=== PATIENT | female | born 1980 | race Two or more races ===

== ENCOUNTER → 2017-08-06 | Outpatient (CLI) | payer OTHER | END | disposition home or self-care (01) | LOC: RAD 11:05 | DX: R06.00 Dyspnea, unspecified (principal); R06.02 Shortness of breath; M54.89 Other dorsalgia | CPT/HCPCS: 71046 ==

== ENCOUNTER → 2017-10-13 | Outpatient (CLI) | payer OTHER | END | disposition home or self-care (01) | LOC: US 12:41 | DX: N64.4 Mastodynia (principal); N63.20 Unspecified lump in the left breast, unspecified quadrant; N63.10 Unspecified lump in the right breast, unspecified quadrant | CPT/HCPCS: 76641; 77066; G0279 ==

== ENCOUNTER 2018-08-31 08:40 | Emergency (ER) | payer OTHER ==
[~2018-08-31] VITALS: Ht 165.1 cm; Wt 72.6 kg
[2018-08-31] MEDS ORDERED: ALBUTEROL SULFATE 2.5 MG/3 ML NEBU. CONT NEB ONE (09:00)
[2018-08-31 09:21] LABS: BILIRUBIN,URINE NEGATIVE (NEG); CLARITY,URINE CLEAR; COLOR,URINE YELLOW; NITRITE,URINE NEGATIVE (NEG); PROTEIN,URINE NEGATIVE (NEG-TRACE); UROBILINOGEN,URINE 0.2 mg/dL (0.2 mg/dL)
[2018-08-31 09:26] LABS: BASO % 1 % (0-3); EOS # 0.1 x10^3/uL (0.0-0.7); EOS % 1 % (0-3); HEMATOCRIT 39.6 % (36.0-47.0); HEMOGLOBIN 13.2 g/dL (12.0-15.5); LYMPH # 3.4 x10^3/uL (1.0-4.8); LYMPH % 36 % (24-48); MEAN CORPUSCULAR HEMOGLOBIN 29 pg (25-35); MEAN CORPUSCULAR HGB CONC 33 g/dL (31-37); MEAN CORPUSCULAR VOLUME 88 fL (79-100); MONO # 0.9 x10^3/uL (0.0-1.1); MONO % 10 % (0-9); NEUT # 4.9 x10^3uL (1.8-7.7); NEUT % 53 % (31-73); PLATELET COUNT 302 x10^3/uL (140-400); RED CELL DISTRIBUTION WIDTH 13.1 % (11.5-14.5); WHITE BLOOD COUNT 9.3 x10^3/uL (4.0-11.0)
--- NOTE | 2018-08-31 09:26 | PHYS DOC ---
Past Medical History Past Medical History: Asthma Past Surgical History: Appendectomy, Additional Past Surgical Histo: bladder suspension Alcohol Use: None Drug Use: None Adult General Chief Complaint Chief Complaint: SHORTNESS OF BREATH HPI HPI Patient is a 37 year old female who presents with [] Review of Systems Review of Systems Constitutional: Denies fever or chills [] Eyes: Denies change in visual acuity, redness, or eye pain [] HENT: Denies nasal congestion or sore throat [] Respiratory: Denies cough or shortness of breath [] Cardiovascular: No additional information not addressed in HPI [] GI: Denies abdominal pain, nausea, vomiting, bloody stools or diarrhea [] : Denies dysuria or hematuria [] Musculoskeletal: Denies back pain or joint pain [] Integument: Denies rash or skin lesions [] Neurologic: Denies headache, focal weakness or sensory changes [] Endocrine: Denies polyuria or polydipsia [] All other systems were reviewed and found to be within normal limits, except as documented in this note. Current Medications Current Medications Current Medications Medications (Trade) Dose Ordered Sig/Karley Start Time Stop Time Status Last Admin Dose Admin Albuterol Sulfate (Ventolin Neb Soln) 10 mg 1X ONCE 08/31/18 09:00 08/31/18 09:01 DC 08/31/18 09:06 10 MG Allergies Allergies Allergies Coded Allergies Type Severity Reaction Last Updated Verified No Known Drug Allergies 01/13/14 No Physical Exam Physical Exam Constitutional: Well developed, well nourished, no acute distress, non-toxic appearance. [] HENT: Normocephalic, atraumatic, bilateral external ears normal, oropharynx moist, no oral exudates, nose normal. [] Eyes: PERRLA, EOMI, conjunctiva normal, no discharge. [] Neck: Normal range of motion, no tenderness, supple, no stridor. [] Cardiovascular:Heart rate regular rhythm, no murmur [] Lungs & Thorax: Bilateral breath sounds clear to auscultation [] Abdomen: Bowel sounds normal, soft, no tenderness, no masses, no pulsatile masses. [] Skin: Warm, dry, no erythema, no rash. [] Back: No tenderness, no CVA tenderness. [] Extremities: No tenderness, no cyanosis, no clubbing, ROM intact, no edema. [] Neurologic: Alert and oriented X 3, normal motor function, normal sensory function, no focal deficits noted. [] Psychologic: Affect normal, judgement normal, mood normal. [] Current Patient Data Vital Signs Vital Signs Date Time Temp Pulse Resp B/P (MAP) Pulse Ox O2 Delivery O2 Flow Rate FiO2 08/31/18 09:10 97 Room Air 08/31/18 08:49 96.9 82 20 116/74 (88) 96.9 Lab Values Laboratory Tests Test 08/31/18 09:05 08/31/18 09:10 08/31/18 10:26 Urine Collection Type Unknown Urine Color Yellow Urine Clarity Clear Urine pH 6.0 Urine Specific [place] 1.025 Urine Protein Negative mg/dL (NEG-TRACE) Urine Glucose (UA) Negative mg/dL (NEG) Urine Ketones (Stick) Negative mg/dL (NEG) Urine Blood Trace (NEG) Urine Nitrite Negative (NEG) Urine Bilirubin Negative (NEG) Urine Urobilinogen Dipstick 0.2 mg/dL (0.2 mg/dL) Urine Leukocyte Esterase Negative (NEG) Urine RBC Occ /HPF (0-2) Urine WBC 5-10 /HPF (0-4) Urine Squamous Epithelial Cells Mod /LPF Urine Bacteria Moderate /HPF (0-FEW) Urine Mucus Mod /LPF White Blood Count 9.3 x10^3/uL (4.0-11.0) Red Blood Count 4.50 x10^6/uL (3.50-5.40) Hemoglobin 13.2 g/dL (12.0-15.5) Hematocrit 39.6 % (36.0-47.0) Mean Corpuscular Volume 88 fL (79-100) Mean Corpuscular Hemoglobin 29 pg (25-35) Mean Corpuscular Hemoglobin Concent 33 g/dL (31-37) Red Cell Distribution Width 13.1 % (11.5-14.5) Platelet Count 302 x10^3/uL (140-400) Neutrophils (%) (Auto) 53 % (31-73) Lymphocytes (%) (Auto) 36 % (24-48) Monocytes (%) (Auto) 10 % (0-9) H Eosinophils (%) (Auto) 1 % (0-3) Basophils (%) (Auto) 1 % (0-3) Neutrophils # (Auto) 4.9 x10^3uL (1.8-7.7) Lymphocytes # (Auto) 3.4 x10^3/uL (1.0-4.8) Monocytes # (Auto) 0.9 x10^3/uL (0.0-1.1) Eosinophils # (Auto) 0.1 x10^3/uL (0.0-0.7) Basophils # (Auto) 0.0 x10^3/uL (0.0-0.2) Sodium Level 142 mmol/L (136-145) Potassium Level 3.5 mmol/L (3.5-5.1) Chloride Level 103 mmol/L (98-107) Carbon Dioxide Level 23 mmol/L (21-32) Anion Gap 16 (6-14) H Blood Urea Nitrogen 18 mg/dL (7-20) Creatinine 0.8 mg/dL (0.6-1.0) Estimated GFR (Cockcroft-Gault) 79.9 BUN/Creatinine Ratio 23 (6-20) H Glucose Level 80 mg/dL (70-99) Calcium Level 9.4 mg/dL (8.5-10.1) Total Bilirubin 0.3 mg/dL (0.2-1.0) Aspartate Amino Transferase (AST) 14 U/L (15-37) L Alanine Aminotransferase (ALT) 33 U/L (14-59) Alkaline Phosphatase 45 U/L (46-116) L Total Protein 7.5 g/dL (6.4-8.2) Albumin 4.0 g/dL (3.4-5.0) Albumin/Globulin Ratio 1.1 (1.0-1.7) POC Urine HCG, Qualitative Hcg negative (Negative) Laboratory Tests 08/31/18 09:10 Laboratory Tests 08/31/18 09:10 EKG EKG [] Radiology/Procedures Radiology/Procedures [] PATIENT: MAY VELASQUEZ ACCOUNT: [id number] : 1980 LOCATION: ER AGE: 37 SEX: F EXAM STATUS: REG ER ORD. PHYSICIAN: AMAURY SYED APRN REASON: worsening cough, short of air PROCEDURE: CHEST PA & LATERAL Chest, PA and Lateral: Technique: PA and lateral views of the chest were obtained. History: Shortness of breath, cough. Comparison: 08/06/2017. Findings: The heart and pulmonary vasculature appear within normal limits. The lungs are clear. The pleural margins are clear. Impression: No acute chest process is seen. Electronically signed by: Heriberto Lu MD (08/31/2018 10:37 AM) [facility] DICTATED and SIGNED BY: HERIBERTO LU MD DATE: 08/31/18 1035 Course & Med Decision Making Course & Med Decision Making Pertinent Labs and Imaging studies reviewed. (See chart for details) [] Dragon Disclaimer Dragon Disclaimer This electronic medical record was generated, in whole or in part, using a voice recognition dictation system. Departure Departure Impression: Primary Impression: Asthma exacerbation Disposition: 01 HOME, SELF-CARE Condition: STABLE Referrals: LORI ENGLISH GAMBLING BROKER (PCP) Patient Instructions: Asthma, Adult Additional Instructions: Continue your at home medications. Follow-up with your primary care provider for recheck in 2 days. Increase fluids and rest. Return to the emergency department if worsening. AMAURY SYED APRN Aug 31, 2018 09:26
[2018-08-31 09:36] LABS: CALCIUM 9.4 mg/dL (8.5-10.1); CREATININE 0.8 mg/dL (0.6-1.0); GFR 79.9; POTASSIUM 3.5 mmol/L (3.5-5.1)
[2018-08-31 09:37] LABS: SQUAMOUS EPITHELIAL CELL,UR MOD /LPF
[2018-08-31 09:42] LABS: ALBUMIN/GLOBULIN RATIO 1.1 (1.0-1.7); TOTAL BILIRUBIN 0.3 mg/dL (0.2-1.0); TOTAL PROTEIN 7.5 g/dL (6.4-8.2)
[2018-08-31 10:05] LABS: RBC,URINE OCC /HPF (0-2)
[2018-08-31 10:06] LABS: BACTERIA,URINE MODERATE /HPF (0-FEW)
--- NOTE | 2018-08-31 10:42 | RAD ---
Chest, PA and Lateral: Technique: PA and lateral views of the chest were obtained. History: Shortness of breath, cough. Comparison: 08/06/2017. Findings: The heart and pulmonary vasculature appear within normal limits. The lungs are clear. The pleural margins are clear. Impression: No acute chest process is seen. Electronically signed by: Heriberto Lu MD (08/31/2018 10:37 AM) [facility]
[2018-08-31 11:31] VITALS: BP 124/60
== END 2018-08-31 11:30 | disposition home or self-care (01) ==
LOC: ER 08:40
DX: J45.901 Unspecified asthma with (acute) exacerbation (principal)
CPT/HCPCS: 36415; 71046; 80053; 81001; 81025; 85025; 87086; 94644; 99285; J7613; 94640

== ENCOUNTER 2018-09-09 16:28 | Emergency (ER) | payer OTHER ==
[~2018-09-09] VITALS: Ht 165.1 cm; Wt 72.6 kg
[2018-09-09] MEDS ORDERED: predniSONE 10 MG TABLET PO ONE (16:45)
[2018-09-09] MEDS ORDERED: IPRATRPIUM/ALBUTEROL 0.5/2.5MG 3 ML NEBU. NEB ONE (16:45)
--- NOTE | 2018-09-09 16:56 | PHYS DOC ---
Past Medical History Past Medical History: Asthma Past Surgical History: Appendectomy, Additional Past Surgical Histo: bladder suspension Alcohol Use: None Drug Use: None Adult General Chief Complaint Chief Complaint: SHORTNESS OF BREATH HPI HPI Patient is a 37 year old female who presents with was diagnosed with pneumonia 3 weeks ago. Patient finished her antibiotic and Medrol Dosepak 2 weeks ago. Patient has a history of asthma. Patient states she's got slightly better but is back to not feeling good. Patient states she is coughing nonstop causing her chest pain and she started running a fever again last night. Review of Systems Review of Systems Constitutional: Denies fever or chills [] Eyes: Denies change in visual acuity, redness, or eye pain [] HENT: Denies nasal congestion or sore throat [] Respiratory: cough or shortness of breath [] Cardiovascular: No additional information not addressed in HPI [] GI: Denies abdominal pain, nausea, vomiting, bloody stools or diarrhea [] : Denies dysuria or hematuria [] Musculoskeletal: Denies back pain or joint pain [] Integument: Denies rash or skin lesions [] Neurologic: Denies headache, focal weakness or sensory changes [] All other systems were reviewed and found to be within normal limits, except as documented in this note. Current Medications Current Medications Current Medications Medications (Trade) Dose Ordered Sig/Karley Start Time Stop Time Status Last Admin Dose Admin Albuterol/ Ipratropium (Duoneb) 3 ml 1X ONCE 09/09/18 16:45 09/09/18 16:46 DC 09/09/18 16:50 3 ML Benzonatate (Tessalon Perle) 100 mg 1X ONCE 09/09/18 17:00 09/09/18 17:01 DC 09/09/18 17:01 100 MG Prednisone (Prednisone) 50 mg 1X ONCE 09/09/18 16:45 09/09/18 16:46 DC 09/09/18 17:01 50 MG Allergies Allergies Allergies Coded Allergies Type Severity Reaction Last Updated Verified No Known Drug Allergies 01/13/14 No Physical Exam Physical Exam Constitutional: Well developed, well nourished, no acute distress, non-toxic appearance. [] HENT: Normocephalic, atraumatic, bilateral external ears normal, oropharynx moist, no oral exudates, nose normal. [] Eyes: PERRLA, EOMI, conjunctiva normal, no discharge. [] Neck: Normal range of motion, no tenderness, supple, no stridor. [] Cardiovascular:Heart rate regular rhythm, no murmur [] Lungs & Thorax: Right lung inspiratory expiratory wheezes Abdomen: Bowel sounds normal, soft, no tenderness, no masses, no pulsatile masses. [] Skin: Warm, dry, no erythema, no rash. [] Back: No tenderness, no CVA tenderness. [] Extremities: No tenderness, no cyanosis, no clubbing, ROM intact, no edema. [] Neurologic: Alert and oriented X 3, normal motor function, normal sensory function, no focal deficits noted. [] Psychologic: Affect normal, judgement normal, mood normal. [] Current Patient Data Vital Signs Vital Signs Date Time Temp Pulse Resp B/P (MAP) Pulse Ox O2 Delivery O2 Flow Rate FiO2 09/09/18 16:50 98 Room Air 09/09/18 16:49 97.7 108 20 118/72 (87) 97.7 Lab Values Laboratory Tests Test 09/09/18 16:55 09/09/18 17:01 White Blood Count 8.1 x10^3/uL (4.0-11.0) Red Blood Count 4.60 x10^6/uL (3.50-5.40) Hemoglobin 13.8 g/dL (12.0-15.5) Hematocrit 40.8 % (36.0-47.0) Mean Corpuscular Volume 89 fL (79-100) Mean Corpuscular Hemoglobin 30 pg (25-35) Mean Corpuscular Hemoglobin Concent 34 g/dL (31-37) Red Cell Distribution Width 12.9 % (11.5-14.5) Platelet Count 291 x10^3/uL (140-400) Neutrophils (%) (Auto) 62 % (31-73) Lymphocytes (%) (Auto) 23 % (24-48) L Monocytes (%) (Auto) 14 % (0-9) H Eosinophils (%) (Auto) 2 % (0-3) Basophils (%) (Auto) 1 % (0-3) Neutrophils # (Auto) 5.0 x10^3uL (1.8-7.7) Lymphocytes # (Auto) 1.8 x10^3/uL (1.0-4.8) Monocytes # (Auto) 1.1 x10^3/uL (0.0-1.1) Eosinophils # (Auto) 0.1 x10^3/uL (0.0-0.7) Basophils # (Auto) 0.0 x10^3/uL (0.0-0.2) Sodium Level 136 mmol/L (136-145) Potassium Level 3.8 mmol/L (3.5-5.1) Chloride Level 100 mmol/L (98-107) Carbon Dioxide Level 27 mmol/L (21-32) Anion Gap 9 (6-14) Blood Urea Nitrogen 13 mg/dL (7-20) Creatinine 0.8 mg/dL (0.6-1.0) Estimated GFR (Cockcroft-Gault) 79.9 Glucose Level 95 mg/dL (70-99) Calcium Level 9.0 mg/dL (8.5-10.1) POC Urine HCG, Qualitative Hcg negative (Negative) Laboratory Tests 09/09/18 16:55 Laboratory Tests 09/09/18 16:55 EKG EKG [] Radiology/Procedures Radiology/Procedures Chest xray Course & Med Decision Making Course & Med Decision Making Patient is a 37 year old female who presents with was diagnosed with pneumonia 3 weeks ago. Patient finished her antibiotic and Medrol Dosepak 2 weeks ago. Patient has a history of asthma. Patient states she's got slightly better but is back to not feeling good. Patient states she is coughing nonstop causing her chest pain and she started running a fever again last night. Patient is alert and oriented. Patient speaks in full clear sentences. Patient was coughing continuously. Patient has is respiratory expiratory wheezes in the right lung. And is satting 99% on room air and is afebrile. The warm and dry. Mucous membranes are moist. Patient denies nausea, vomiting, diarrhea, dizziness. Abdomen is soft and nontender. PERRLA. Ambulatory with a steady gait. Chest xray read by Dr Rodriguez and shows no acute findings. Patient is likely having Bronchitis. Patient states she is feeling better after receiving the breathing treatment. Lungs are clearer after breathing treatment. She will be given prednisone and albuterol inhaler. Patient to follow up with primary care as soon as possible. Dragon Disclaimer Dragon Disclaimer This electronic medical record was generated, in whole or in part, using a voice recognition dictation system. Departure Departure Impression: Primary Impression: Bronchitis Disposition: 01 HOME, SELF-CARE Condition: STABLE Referrals: LORI ENGLISH SLEEVE SETTER (PCP) Patient Instructions: Bronchitis Additional Instructions: Follow up with your primary care. Take medications as prescribed. Drink plenty of fluids. Scripts Benzonatate (TESSALON PERLE) 100 Mg Capsule 1 CAP PO TID, #30 CAP Prov: KULDIP BEAVERS APRN 09/09/18 Albuterol Sulfate (Proair Hfa) 8.5 Gm Hfa.aer.ad 1 PUFF INH PRN Q6HRS PRN for SHORTNESS OF BREATH, #1 INHALER Prov: KULDIP BEAVERS APRN 09/09/18 Prednisone (PREDNISONE) 20 Mg Tablet 1 TAB PO DAILY, #3 TAB Prov: KULDIP BEAVERS APRN 09/09/18 KULDIP BEAVERS APRN Sep 09, 2018 16:56
[2018-09-09] MEDS ORDERED: BENZONATATE 100 MG CAPSULE. PO ONE (17:00)
[2018-09-09 17:06] LABS: BASO % 1 % (0-3); EOS # 0.1 x10^3/uL (0.0-0.7); EOS % 2 % (0-3); HEMATOCRIT 40.8 % (36.0-47.0); HEMOGLOBIN 13.8 g/dL (12.0-15.5); LYMPH # 1.8 x10^3/uL (1.0-4.8); LYMPH % 23 % (24-48); MEAN CORPUSCULAR HEMOGLOBIN 30 pg (25-35); MEAN CORPUSCULAR HGB CONC 34 g/dL (31-37); MEAN CORPUSCULAR VOLUME 89 fL (79-100); MONO # 1.1 x10^3/uL (0.0-1.1); MONO % 14 % (0-9); NEUT % 62 % (31-73); PLATELET COUNT 291 x10^3/uL (140-400); RED CELL DISTRIBUTION WIDTH 12.9 % (11.5-14.5); WHITE BLOOD COUNT 8.1 x10^3/uL (4.0-11.0)
[2018-09-09 17:15] LABS: CREATININE 0.8 mg/dL (0.6-1.0); GFR 79.9; POTASSIUM 3.8 mmol/L (3.5-5.1)
[2018-09-09] MEDS ORDERED: PRED20TA PO (18:03)
[2018-09-09] MEDS ORDERED: ALBU2.5V8 INH (18:03)
[2018-09-09] MEDS ORDERED: BENZ100C PO (18:16)
[2018-09-09 18:19] VITALS: BP 104/68
--- NOTE | 2018-09-09 22:54 | RAD ---
PA and lateral chest radiographs 09/09/2018 Clinical History: Cough with history of asthma. PA and lateral digital radiographs of the chest were obtained. Comparison study is dated 08/31/2018. The cardiac and mediastinal silhouettes are within normal limits in size and configuration. No pulmonary infiltrate is seen. No pleural effusion or pneumothorax is noted. The osseous structures are grossly intact. Impression: No radiographic evidence of active cardiopulmonary disease. Electronically signed by: Yuniel Dalton MD (09/09/2018 10:51 PM) [facility]
== END 2018-09-09 18:19 | disposition home or self-care (01) ==
LOC: ER 17:04
DX: J40 Bronchitis, not specified as acute or chronic (principal); R07.89 Other chest pain
CPT/HCPCS: 36415; 71046; 80048; 81025; 85025; 94640; 99284; J7512; J7620

== ENCOUNTER → 2018-09-23 | Outpatient (CLI) | payer OTHER ==
[2018-09-09 18:19] VITALS: BP 104/68
[~2018-09-23] MED LIST: ALBU2.5V8 INH; BENZ100C PO; PRED20TA PO
== END | disposition home or self-care (01) ==
LOC: SPEC 13:01
PROVIDERS: ATTEND Family Medicine
DX: Z01.419 Encounter for gynecological examination (general) (routine) without abnormal findings (principal); R61 Generalized hyperhidrosis
CPT/HCPCS: 88175

== ENCOUNTER → 2018-10-03 | Outpatient (CLI) | payer OTHER ==
[2018-09-09 18:19] VITALS: BP 104/68
[2018-10-03 10:45] LABS: BASO % 1 % (0-3); EOS # 0.1 x10^3/uL (0.0-0.7); EOS % 2 % (0-3); HEMATOCRIT 40.3 % (36.0-47.0); HEMOGLOBIN 13.4 g/dL (12.0-15.5); LYMPH # 1.8 x10^3/uL (1.0-4.8); LYMPH % 31 % (24-48); MEAN CORPUSCULAR HEMOGLOBIN 30 pg (25-35); MEAN CORPUSCULAR HGB CONC 33 g/dL (31-37); MEAN CORPUSCULAR VOLUME 88 fL (79-100); MONO # 0.6 x10^3/uL (0.0-1.1); MONO % 10 % (0-9); NEUT # 3.4 x10^3uL (1.8-7.7); NEUT % 57 % (31-73); PLATELET COUNT 302 x10^3/uL (140-400); RED BLOOD COUNT 4.56 x10^6/uL (3.50-5.40); RED CELL DISTRIBUTION WIDTH 13.1 % (11.5-14.5); WHITE BLOOD COUNT 5.9 x10^3/uL (4.0-11.0)
[2018-10-03 11:16] LABS: ALBUMIN 3.8 g/dL (3.4-5.0); ALBUMIN/GLOBULIN RATIO 1.1 (1.0-1.7); CALCIUM 9.2 mg/dL (8.5-10.1); CREATININE 0.7 mg/dL (0.6-1.0); GFR 92.7; POTASSIUM 4.1 mmol/L (3.5-5.1); TOTAL BILIRUBIN 0.4 mg/dL (0.2-1.0); TOTAL PROTEIN 7.4 g/dL (6.4-8.2)
[2018-10-03 11:20] LABS: CHOLESTEROL/HDL RATIO 4.8
[2018-10-03 19:11] LABS: ESTRADIOL LEVEL 60.6 pg/mL (.); FSH 5.7 mIU/mL (.); PROGESTERONE <0.1 ng/mL (.); T3 TOTAL 112 ng/dL (71-180)
[2018-10-04 02:16] LABS: HEMOGLOBIN A1C 5.3 % (4.8-5.6)
== END | disposition home or self-care (01) ==
LOC: SPEC 10:01
PROVIDERS: ATTEND Family Medicine
DX: Z01.419 Encounter for gynecological examination (general) (routine) without abnormal findings (principal); R61 Generalized hyperhidrosis
CPT/HCPCS: 36415; 80053; 80061; 82306; 82533; 82607; 82670; 83001; 83002; 83036; 84144; 84436; 84443; 84480; 85025; 85651

== ENCOUNTER → 2018-10-11 | Outpatient (CLI) | payer OTHER ==
--- NOTE | 2018-10-11 14:50 | RAD ---
DATE: 10/11/2018 EXAM: MAMMO JUVE SYED CROOKSAT HISTORY: Bilateral breast pain. COMPARISON: Previous mammogram from 2018. This study was interpreted with the benefit of Computerized Aided Detection (CAD). FINDINGS: Breast Density: HETERO The breast parenchyma Is heterogeneously dense, which could reduce sensitivity of mammography. Breast parenchyma level C. The skin and nipples are within normal limits. No suspicious calcifications are seen. Benign-appearing bilateral scattered calcifications. Bilateral retroareolar dilated ducts are seen. There is a 1 cm round lesion at 2:00 position in the left breast best seen on juve MLO view image #23 of 63. This is approximately 5 cm from the nipple. IMPRESSION: Please see ultrasound report from the same day. BI-RADS CATEGORY: 3 PROBABLE BENIGN FINDING(S-SHORT INTERVAL FOLLOW-UP SUGGESTED RECOMMENDED FOLLOW-UP: 6M 6 MONTH FOLLOW-UP. Target Ultrasound of the left breast recommended. PQRS compliance statement: Patient information was entered into a reminder system with a target due date for the next mammogram. Mammography is a sensitive method for finding small breast cancers, but it does not detect them all and is not a substitute for careful clinical examination. A negative mammogram does not negate a clinically suspicious finding and should not result in delay in biopsying a clinically suspicious abnormality. "Our facility is accredited by the [employer] Mammography Program."
--- NOTE | 2018-10-11 14:54 | RAD ---
Indication: Bilateral breast pain. TECHNIQUE: Limited bilateral breast ultrasound in the area of pain. COMPARISON: Same day diagnostic mammogram and ultrasound from 10/13/2017. FINDINGS: Right breast: Scattered dilated ducts are seen. No suspicious solid or cystic lesion seen in the right breast. Left breast: Retroareolar dilated ducts are again seen. There is an oval-shaped hypoechoic lesion with lobulated margins and internal multiple septa without vascularity measuring 1.1 x 0.6 x 1.5 cm at 2:00 position approximately 5 cm from the nipple which corresponds to the mammographically seen abnormality. This is wider than taller without posterior shadowing. IMPRESSION: 1. No suspicious sonographic findings in the right breast. 2. Left breast lesion does not demonstrate apparent worrisome features and likely represents cluster of cysts. BI-RADS 3: Probably benign. Follow-up left breast ultrasound in 6 months recommended. Electronically signed by: Obi Collins DO (10/11/2018 2:52 PM) [facility]
== END | disposition home or self-care (01) ==
LOC: MAMMO 13:29
PROVIDERS: ATTEND Family Medicine
DX: N64.89 Other specified disorders of breast (principal)
CPT/HCPCS: 76641; 77066; G0279; 77062

== ENCOUNTER → 2019-08-17 | Outpatient (CLI) | payer OTHER ==
--- NOTE | 2019-08-17 13:48 | RAD ---
Examination: BREAST BILATERAL History: Bilateral breast pain; complex left breast cyst. Comparison/Correlation: 10/11/2018 mammographic exam and 10/11/2018 breast ultrasound exam Findings: Ultrasound imaging was performed bilaterally at the sites of pain reported by the patient. This includes at the right breast 9:00 region and retroareolar region. No suspicious findings evident. Dilated ducts are present. Right subareolar region. Ultrasound imaging of the left breast at the 3:00 and retroareolar region is unremarkable other than dilated ducts. At the left breast 2:00 region 5 cm from nipple, there is a 0.6 cm x 0.5 cm x 0.5 cm cyst with a thin septation and internal echoes. Impression: BI-RADS Category 2-benign. Left breast 2:00 region cyst is notably decreased in size in the interval. No suspicious findings at the sites of pain reported by the patient.
== END | disposition home or self-care (01) ==
LOC: US 10:40
PROVIDERS: ATTEND Family Medicine
DX: N60.02 Solitary cyst of left breast (principal)
CPT/HCPCS: 76641

== ENCOUNTER 2019-10-08 07:44 | Emergency (ER) | payer OTHER ==
[~2019-10-08] VITALS: Ht 165.1 cm; Wt 75.0 kg
[2019-10-08 07:47] VITALS: BP 119/75
[2019-10-08] MEDS ORDERED: GUAI120L35 PO (08:14)
[2019-10-08] MEDS ORDERED: LIDO:MAALOX 1:1 20 ML SINGLE DOSE. SWSW ONE (08:15)
--- NOTE | 2019-10-08 08:15 | PHYS DOC ---
Past Medical History Past Medical History: Asthma Past Surgical History: Appendectomy, , Other Additional Past Surgical Histo: bladder suspension Smoking Status: Never Smoker Alcohol Use: None Drug Use: None Adult General Chief Complaint Chief Complaint: COUGH HPI HPI Patient is a 39-year-old female who states she is having cough and runny nose. Subjective but no documented fever at home. She states she's been coughing so much that she has some pain in her epigastric area. She is recently started taking Prevacid for gastritis. She states she started this 3 days ago. She denies any nausea vomiting or diarrhea.[] Review of Systems Review of Systems Constitutional: Denies fever or chills [] Eyes: Denies change in visual acuity, redness, or eye pain [] HENT: Denies nasal congestion or sore throat [] Respiratory: Per history of present illness[] Cardiovascular: No additional information not addressed in HPI [] GI: Reports epigastric burning[] : Denies dysuria or hematuria [] Musculoskeletal: Denies back pain or joint pain [] Integument: Denies rash or skin lesions [] Neurologic: Denies headache, focal weakness or sensory changes [] Endocrine: Denies polyuria or polydipsia [] All other systems were reviewed and found to be within normal limits, except as documented in this note. Allergies Allergies Allergies Coded Allergies Type Severity Reaction Last Updated Verified No Known Drug Allergies 01/13/14 No Physical Exam Physical Exam Constitutional: Well developed, well nourished, no acute distress, non-toxic appearance. [] HENT: Normocephalic, atraumatic, bilateral external ears normal, oropharynx moist, no oral exudates, nose normal. [] Eyes: PERRLA, EOMI, conjunctiva normal, no discharge. [] Neck: Normal range of motion, no tenderness, supple, no stridor. [] Cardiovascular:Heart rate regular rhythm, no murmur [] Lungs & Thorax: Bilateral breath sounds clear to auscultation [] Abdomen: Bowel sounds normal, soft, no tenderness, no masses, no pulsatile masses. [] Skin: Warm, dry, no erythema, no rash. [] Back: No tenderness, no CVA tenderness. [] Extremities: No tenderness, no cyanosis, no clubbing, ROM intact, no edema. [] Neurologic: Alert and oriented X 3, normal motor function, normal sensory fun ction, no focal deficits noted. [] Psychologic: Affect normal, judgement normal, mood normal. [] Current Patient Data Vital Signs Vital Signs Date Time Temp Pulse Resp B/P (MAP) Pulse Ox O2 Delivery O2 Flow Rate FiO2 10/08/19 07:47 98.6 82 14 119/75 (90) 98 Room Air 98.6 EKG EKG [] Radiology/Procedures Radiology/Procedures [] Course & Med Decision Making Course & Med Decision Making Pertinent Labs and Imaging studies reviewed. (See chart for details) [] Dragon Disclaimer Dragon Disclaimer This electronic medical record was generated, in whole or in part, using a voice recognition dictation system. Departure Departure Impression: Primary Impression: Upper respiratory infection Additional Impression: Gastritis Disposition: HOME, SELF-CARE Condition: STABLE Referrals: LIZ SHARMA (PCP) Scripts Guaifenesin/Codeine Phosphate (Codeine-Guaifen 10-100 mg/5 ml) 120 Ml Liquid 10 ML PO Q8HRS for COUGH, #120 LIQUID Prov: RAD DOUGLAS DO 10/08/19 Problem Qualifiers Primary Impression: Upper respiratory infection URI type: unspecified URI Qualified Codes: J06.9 - Acute upper respiratory infection, unspecified Additional Impression: Gastritis Gastritis type: unspecified gastritis Chronicity: acute Gastritis bleeding: without bleeding Qualified Codes: K29.00 - Acute gastritis without bleeding RAD DOUGLAS DO Oct 08, 2019 08:14
== END 2019-10-08 08:21 | disposition home or self-care (01) ==
LOC: ER 07:44
DX: J06.9 Acute upper respiratory infection, unspecified (principal); K29.00 Acute gastritis without bleeding; R05 Cough; R10.13 Epigastric pain; J45.909 Unspecified asthma, uncomplicated; Z90.89 Acquired absence of other organs; Z98.890 Other specified postprocedural states
CPT/HCPCS: 99282

== ENCOUNTER → 2019-10-10 | Outpatient (CLI) | payer OTHER ==
[2019-10-08 07:47] VITALS: BP 119/75
[~2019-10-10] MED LIST changes: +GUAI120L35 PO
[2019-10-10 12:06] LABS: BASO % 1 % (0-3); EOS # 0.1 x10^3/uL (0.0-0.7); EOS % 3 % (0-3); HEMATOCRIT 40.1 % (36.0-47.0); HEMOGLOBIN 13.5 g/dL (12.0-15.5); LYMPH # 2.3 x10^3/uL (1.0-4.8); LYMPH % 40 % (24-48); MEAN CORPUSCULAR HEMOGLOBIN 29 pg (25-35); MEAN CORPUSCULAR HGB CONC 34 g/dL (31-37); MEAN CORPUSCULAR VOLUME 87 fL (79-100); MONO # 0.8 x10^3/uL (0.0-1.1); MONO % 14 % (0-9); NEUT # 2.5 x10^3/uL (1.8-7.7); NEUT % 44 % (31-73); PLATELET COUNT 292 x10^3/uL (140-400); RED CELL DISTRIBUTION WIDTH 13.2 % (11.5-14.5); WHITE BLOOD COUNT 5.8 x10^3/uL (4.0-11.0)
[2019-10-10 12:18] LABS: ALBUMIN/GLOBULIN RATIO 1.1 (1.0-1.7); CALCIUM 8.9 mg/dL (8.5-10.1); CHOLESTEROL/HDL RATIO 4.5; CREATININE 0.9 mg/dL (0.6-1.0); TOTAL BILIRUBIN 0.4 mg/dL (0.2-1.0); TOTAL PROTEIN 7.5 g/dL (6.4-8.2)
--- NOTE | 2019-10-10 13:15 | RAD ---
INDICATION: Right upper quadrant pain with fever COMPARISON: None. TECHNIQUE: Grayscale and color ultrasound images obtained through the abdomen. FINDINGS: Aorta/IVC: Not well seen. Distal abdominal aorta 13 mm. Pancreas: Obscured by overlying structures Liver: Echogenic Gallbladder: No definite stones or wall thickening. Common Bile Duct: Obscured by overlying structures Right Kidney: No hydronephrosis. Left Kidney: No hydronephrosis. Spleen: Unremarkable. IMPRESSION: * Liver is echogenic. Nonspecific but can be seen with fatty infiltration. * No definite gallstones. Electronically signed by: Yunior Hill MD (10/10/2019 1:12 PM) [id number]
== END | disposition home or self-care (01) ==
LOC: US 11:47
DX: R10.11 Right upper quadrant pain (principal)
CPT/HCPCS: 36415; 76700; 80053; 80061; 82150; 83690; 85025

== ENCOUNTER 2020-03-25 16:44 | Emergency (ER) | payer OTHER ==
[~2020-03-25] VITALS: Ht 165.1 cm; Wt 76.3 kg
[2020-03-25 16:50] VITALS: BP 152/89
[2020-03-25] MEDS ORDERED: NAPROXEN 500 MG TABLET PO STA (17:04)
[2020-03-25] MEDS ORDERED: ACETAMINOPHEN 500 MG TABLET PO ONE (17:15)
--- NOTE | 2020-03-25 17:36 | RAD ---
PROCEDURE: FINGER(S) RIGHT CLINICAL INDICATION / HISTORY: Reason: 3rd digit of right hand pain. hyperextended / Spl. Instructions: / History: . TECHNIQUE: Right middle finger - 3 Views: PA, oblique, and lateral views were obtained. COMPARISON: None FINDINGS: No fracture, dislocation, or other abnormality is identified. IMPRESSION: Right middle finger. Normal exam. Electronically signed by: Carlos Martínez MD (03/25/2020 5:33 PM) [id number]
--- NOTE | 2020-03-25 17:41 | PHYS DOC ---
Past Medical History Past Medical History: No Pertinent History, Asthma (MISBAH WALDRON APRN) Past Surgical History: Appendectomy, , Tubal ligation, Other Additional Past Surgical Histo: bladder suspension (MISBAH WALDRON APRN) Smoking Status: Never Smoker Alcohol Use: None Drug Use: None (MISBAH WALDRON APRN) General Adult EDM: Chief Complaint: FINGER INJURY HPI: HPI: Patient is a 39 year old female who presents to the ED today complaining of 8 out of 10 right middle finger knuckle pain that began yesterday after she hyperextended the finger while trying to save her phone from falling down. She states she hit the finger on a door. Patient reports the pain is worse on touching the right middle finger knuckle as well as range of motion. She states the immobilizer she has on the finger has been helping with the pain she describes the pain as throbbing and constant (MISBAH WALDRON APRN) Review of Systems: Review of Systems: Constitutional: Denies fever or chills. [] Musculoskeletal: Reports right middle finger pain Integument: Denies rash. [] Neurologic: Denies headache, focal weakness or sensory changes. [] Psychiatric: Denies depression or anxiety. [] (MISBAH WALDRON APRN) Heart Score: Risk Factors: Risk Factors: DM, Current or recent (<one month) smoker, HTN, HLP, family history of CAD, obesity. Risk Scores: Score 0 - 3: 2.5% MACE over next 6 weeks - Discharge Home Score 4 - 6: 20.3% MACE over next 6 weeks - Admit for Clinical Observation Score 7 - 10: 72.7% MACE over next 6 weeks - Early Invasive Strategies (MISBAH WALDRON APRN) Current Medications: Current Medications Medications (Trade) Dose Ordered Sig/Karley Start Time Stop Time Status Last Admin Dose Admin Acetaminophen (Tylenol) 1,000 mg 1X ONCE 03/25/20 17:15 03/25/20 17:16 DC 03/25/20 17:17 1,000 MG Naproxen (Naprosyn) 500 mg 1X STAT 03/25/20 17:04 03/25/20 17:06 DC 03/25/20 17:17 500 MG (MISBAH WALDRON APRN) Allergies: Allergies: Allergies Coded Allergies Type Severity Reaction Last Updated Verified No Known Drug Allergies 01/13/14 No (MISBAH WALDRON APRN) Physical Exam: PE: Constitutional: Well developed, well nourished, no acute distress, non-toxic appearance. [] Skin: Warm, dry, no erythema, no rash. [] Back: No tenderness, no CVA tenderness. [] Extremities: Right middle finger with no obvious deformity. Slight soft tissue swelling noted on the dorsal aspect of the right middle finger. Tenderness on palpation of the right middle finger knuckle. Full range of motion to the right middle finger. Adequate radial and ulnar sensation to the right middle finger. +2 right radial pulse. Cap refill less than 2 seconds the right middle finger. Neurologic: Alert and oriented X 3, normal motor function, normal sensory function, no focal deficits noted. [] Psychologic: Affect normal, judgement normal, mood normal. [] (MISBAH WALDRON APRN) Current Patient Data: Vital Signs: Vital Signs Date Time Temp Pulse Resp B/P (MAP) Pulse Ox O2 Delivery O2 Flow Rate FiO2 03/25/20 16:50 97.7 65 22 152/89 (110) 97 Room Air 97.7 (MISBAH WALDRON APRN) EKG: EKG: [] (MISBAH WALDRON APRN) Radiology/Procedures: Radiology/Procedures: []PROCEDURE: FINGER(S) RIGHT PROCEDURE: FINGER(S) RIGHT CLINICAL INDICATION / HISTORY: Reason: 3rd digit of right hand pain. hyperextended / Spl. Instructions: / History: . TECHNIQUE: Right middle finger - 3 Views: PA, oblique, and lateral views were obtained. COMPARISON: None FINDINGS: No fracture, dislocation, or other abnormality is identified. IMPRESSION: Right middle finger. Normal exam. Electronically signed by: Leoncio Martínez MD (03/25/2020 5:33 PM) [id number] DICTATED and SIGNED BY: LEONCIO MARTÍNEZ MD DATE: 03/25/20 173 (MISBAH WALDRON APRN) Course & Med Decision Making: Course & Med Decision Making Pertinent Labs and Imaging studies reviewed. (See chart for details) This is a 39-year-old female patient who presents to the ED today with right middle finger pain after hitting it on a door yesterday. Right middle finger x- rays interpreted by radiologist are negative for any acute findings. Patient already has a right middle finger splint applied by herself, neurovascular exam done by me is normal. Ice elevation encouraged. Follow-up with orthopedic doctor in 1 to 2 weeks as needed. OTC pain relievers. (MISBAH WALDRON APRN) Dragon Disclaimer: Dragon Disclaimer: This electronic medical record was generated, in whole or in part, using a voice recognition dictation system. (MISBAH WALDRON APRN) Departure Departure Impression: Primary Impression: Sprain of finger of right hand Qualified Codes: S63.632A - Sprain of interphalangeal joint of right middle finger, initial encounter Disposition: HOME, SELF-CARE Condition: STABLE Referrals: LIZ SHARMA (PCP) VICENTA BRADSHAW MD Follow-up in 1 week Patient Instructions: Finger Sprain, [id number] Additional Instructions: Your right middle finger x-ray is negative for any acute findings. You can wear the splint you have as tolerated. Try to ice and elevate the extremity. Follow-up with the provided orthopedic doctor or your own doctor in 1 to 2 weeks. Justicifation of Admission Dx: Justifications for Admission: Justification of Admission Dx: N/A (MISBAH WALDRON APRN) Attending Signature Attending Signature I have reviewed the PA/PEGA DEVELOPER's note and plan of care. I was available for consultation as needed during the patient's visit in the emergency department. I agree with the clinical impression, plan, and disposition. (KARMEN GARCIA DO) MISBAH WALDRON APRN Mar 25, 2020 17:41 KARMEN GARCIA DO Mar 25, 2020 18:45
== END 2020-03-25 17:43 | disposition home or self-care (01) ==
LOC: ER 16:44
DX: S63.632A Sprain of interphalangeal joint of right middle finger, initial encounter (principal); R20.2 Paresthesia of skin; J45.909 Unspecified asthma, uncomplicated; Z90.89 Acquired absence of other organs; Z98.51 Tubal ligation status; Z98.890 Other specified postprocedural states; W18.39XA Other fall on same level, initial encounter; Y93.89 Activity, other specified; Y92.89 Other specified places as the place of occurrence of the external cause; Y99.8 Other external cause status
CPT/HCPCS: 73140; 99283

== ENCOUNTER → 2020-05-15 | Outpatient (CLI) | payer OTHER | LOC: LAB 11:21 | PROVIDERS: ATTEND Internal Medicine Pulmonary Disease | DX: U07.1 COVID-19 (principal); R51.9 Headache, unspecified; R09.81 Nasal congestion | CPT/HCPCS: 87426 ==

== ENCOUNTER → 2020-09-13 | Outpatient (CLI) | payer OTHER ==
[2020-09-13 08:49] LABS: BASO % 1 % (0-3); EOS # 0.1 x10^3/uL (0.0-0.7); EOS % 2 % (0-3); HEMATOCRIT 39.1 % (36.0-47.0); HEMOGLOBIN 13.2 g/dL (12.0-15.5); LYMPH # 1.8 x10^3/uL (1.0-4.8); LYMPH % 32 % (24-48); MEAN CORPUSCULAR HEMOGLOBIN 30 pg (25-35); MEAN CORPUSCULAR HGB CONC 34 g/dL (31-37); MEAN CORPUSCULAR VOLUME 88 fL (79-100); MONO # 0.5 x10^3/uL (0.0-1.1); MONO % 9 % (0-9); NEUT # 3.2 x10^3/uL (1.8-7.7); NEUT % 57 % (31-73); PLATELET COUNT 314 x10^3/uL (140-400); RED BLOOD COUNT 4.46 x10^6/uL (3.50-5.40); RED CELL DISTRIBUTION WIDTH 12.5 % (11.5-14.5); WHITE BLOOD COUNT 5.5 x10^3/uL (4.0-11.0)
[2020-09-13 08:55] LABS: BILIRUBIN,URINE NEGATIVE (NEG); CLARITY,URINE CLEAR; COLOR,URINE YELLOW; NITRITE,URINE NEGATIVE (NEG); PH,URINE 5.5 (<5.0-8.0); PROTEIN,URINE NEGATIVE (NEG-TRACE); UROBILINOGEN,URINE 0.2 mg/dL (0.2 mg/dL)
[2020-09-13 09:15] LABS: BACTERIA,URINE FEW /HPF (0-FEW); RBC,URINE 0 /HPF (0-2); WBC,URINE RARE /HPF (0-4)
[2020-09-13 09:19] LABS: ALBUMIN 3.9 g/dL (3.4-5.0); ALBUMIN/GLOBULIN RATIO 1.1 (1.0-1.7); CREATININE 0.7 mg/dL (0.6-1.0); GFR 91.8; TOTAL BILIRUBIN 0.3 mg/dL (0.2-1.0); TOTAL PROTEIN 7.3 g/dL (6.4-8.2)
[2020-09-13 09:21] LABS: CHOLESTEROL/HDL RATIO 5.1
[2020-09-13 21:09] LABS: LUTEINIZING HORMONE 9.4 mIU/mL (.)
[2020-09-13 23:10] LABS: ESTRADIOL LEVEL 106.6 pg/mL (.); PROGESTERONE 0.1 ng/mL (.)
[2020-09-14 01:11] LABS: HEMOGLOBIN A1C 5.4 % (4.8-5.6)
== END ==
LOC: SPEC 08:30
PROVIDERS: ATTEND Family Medicine
DX: Z00.00 Encounter for general adult medical examination without abnormal findings (principal); K21.9 Gastro-esophageal reflux disease without esophagitis; R61 Generalized hyperhidrosis
CPT/HCPCS: 36415; 80053; 80061; 81001; 82306; 82670; 83001; 83002; 83036; 83690; 84144; 84436; 84443; 84480; 85025

== ENCOUNTER → 2020-11-04 | Outpatient (CLI) | payer OTHER ==
--- NOTE | 2020-11-07 18:23 | RAD ---
DATE: 11/04/2020 EXAM: MAMMO JUVE SCREENING BILATERAL HISTORY: Screening COMPARISON: 10/11/2018, 10/14/2027 This study was interpreted with the benefit of Computerized Aided Detection (CAD). Breast Density: HETERO The breast parenchyma is heterogenously dense, which could reduce sensitivity of mammography. Breast parenchyma level C. FINDINGS: There two new circumspect circumscribed masses in the lower left breast. One of these measures 7 mm and is at 8:00, 5 cm from the nipple. Another measures 10 mm and is at 4:00, 6 to 7 cm posterior to the nipple. Multiple other bilateral facet masses are unchanged and benign appearing. No suspicious calcifications or architectural distortion. IMPRESSION: There are 2 new circumscribed masses in the lower left breast, at 8:00 and 4:00. Other bilateral benign-appearing circumscribed masses are unchanged. Recommend ultrasound to further evaluate. BI-RADS CATEGORY: 0 INCOMPLETE: NEEDS ADDITIONAL IMAGING EVALUATION AND/OR PRIOR MAMMOGRAMS FOR COMPARISON. RECOMMENDED FOLLOW-UP: ADD ADDITIONAL IMAGING PQRS compliance statement: Patient information was entered into a reminder system with a target due date for the next mammogram. Mammography is a sensitive method for finding small breast cancers, but it does not detect them all and is not a substitute for careful clinical examination. A negative mammogram does not negate a clinically suspicious finding and should not result in delay in biopsying a clinically suspicious abnormality. "Our facility is accredited by the [employer] Mammography Program."
== END ==
LOC: MAMMO 13:11
PROVIDERS: ATTEND Family Medicine
DX: Z12.31 Encounter for screening mammogram for malignant neoplasm of breast (principal); N63.23 Unspecified lump in the left breast, lower outer quadrant; N63.24 Unspecified lump in the left breast, lower inner quadrant
CPT/HCPCS: 77063; 77067

== ENCOUNTER → 2020-11-13 | Outpatient (CLI) | payer OTHER ==
--- NOTE | 2020-11-13 15:12 | RAD ---
EXAM: Left breast sonogram. HISTORY: 40-year-old female presents for evaluation of nodularity within the left breast demonstrated on a mammogram dated 11/04/2020. TECHNIQUE: Sonographic imaging of the left breast including all 4 quadrants of the rectal region was performed. COMPARISON: Mammogram dated 11/04/2020 and sonogram dated 08/17/2019. FINDINGS: There is a complicated cyst or cluster of cysts at the 5:30 position 6 cm the nipple measur ing 9 mm in maximum dimension. There is a 10 mm elongated complicated cyst at the 3:30 position 6 cm from the nipple. There is a 3 mm cyst with internal debris and adjacent focally dilated duct at the 6 :00 position 5 cm from the nipple. There is an 8 mm simple cyst at the 8:00 position 5 cm from the ni pple. There are benign axillary lymph nodes. IMPRESSION: 1. Small benign-appearing cystic lesions within the left breast, the largest of which is a complicate d cyst or cluster of cysts at the 5:30 position measuring 9 mm. These correspond with areas of mammog raphic nodularity. 2. BI-RADS Category 3: Probably benign finding(s). Precautionary short-term follow-up with a right br east sonogram in 6 months is recommended. Electronically signed by: Beatriz Ruby MD (11/13/2020 3:09 PM) [id number]
== END ==
LOC: US 14:30
PROVIDERS: ATTEND Family Medicine
DX: R92.2 Inconclusive mammogram (principal)
CPT/HCPCS: 76641

== ENCOUNTER → 2021-05-29 | Outpatient (CLI) | payer OTHER ==
--- NOTE | 2021-05-30 10:37 | RAD ---
EXAM: US BREAST LT 05/29/2021 2:55 PM CLINICAL INDICATION: Six-month follow-up of left breast lesions. COMPARISON: Left breast ultrasound 11/13/2020 TECHNIQUE: Grayscale and color Doppler ultrasound imaging of the left breast in the areas of concern FINDINGS: At 3:30, 6 cm from the nipple there is an ovoid, peripherally hypoechoic lesion measuring 7 x 6 x 2 m m. This is circumscribed and parallel orientation with no vascularity or shadowing. No significant ch sri from prior exam. At 5:30, 6 cm the nipple there is a similar-appearing ovoid hypoechoic mass measuring 7 x 8 x 3 mm. T his is slightly smaller and more ovoid in appearance. At 6:00 5 cm the nipple, there is a similar-appearing ovoid hypoechoic mass measuring 4 x 3 x 2 mm. N o significant change from prior exam. At 8:00 5 cm the nipple, there is a lobulated hypoechoic mass measuring 6 x 6 x 2 mm. This is smaller and more lobulated in appearance. IMPRESSION: Cystic lesions at 3:30, 5:30, 6:00, and 8:00 in the left breast are stable or slightly s maller compared to 11/13/2020. These are likely areas of benign fibrocystic changes. Recommend 6 month follow-up ultrasound to ensure stability, at which time the patient is due for her annual bilateral mammogram. BI-RADS category 3: Probably benign. Electronically signed by: Sarah Ortiz MD (05/30/2021 10:35 AM) [id number]
== END ==
LOC: US 15:05
PROVIDERS: ATTEND Nurse Practitioner
DX: Z09 Encounter for follow-up examination after completed treatment for conditions other than malignant neoplasm (principal); R92.8 Other abnormal and inconclusive findings on diagnostic imaging of breast; N60.12 Diffuse cystic mastopathy of left breast
CPT/HCPCS: 76641

== ENCOUNTER → 2021-12-18 | Outpatient (CLI) | payer OTHER ==
--- NOTE | 2021-12-18 14:14 | RAD ---
PROCEDURE: MG DIGITAL BILAT DIAGNOSTIC MAMMO WITH JUVE, US BREAST BILAT HISTORY: The patient is 41 years old and is seen for Reason: 6 MONTH FOLLOW-UP / Spl. Instructions: / History: . COMPARISON: Ultrasound May 29, 2021 and November 13, 2020 as well as August 17, 2019. Mammogram Oct. TECHNIQUE: CC and MLO views of both breasts were obtained. Images were processed by the [employer] computer-aided detection system. Bilateral breast ultrasounds were also performed. DENSITY: There are scattered fibroglandular densities. FINDINGS: Right mammogram: Well-circumscribed masses within the right outer breast. Benign-appearing calcificat ions. Right ultrasound: Hypoechoic lesion within the right breast 9:00 position 7 cm from the nipple measur es 0.9 x 0.4 x 0.5 cm. Corresponds with mammographic finding. Overall size is decreased compared to p rior with increased complexity. Left mammogram: Increased left inferior lateral well-circumscribed masses compared to prior. Addition ally decreased medial well-circumscribed mass. Unchanged benign appearing calcifications. Decreased c omplicated cystic lesion within the left breast 5:30 position 6 imaged from the nipple measures 0.9 x 0.8 x 0.3 cm. Mildly dilated duct within the left outer breast. IMPRESSION: Multiple bilateral complicated cysts. Decreased and unchanged compared to prior. No new m ass identified. Recommend annual screening mammograms per [employer] guidelines. She will be due in one year. BI-RADS category 2 Benign Patient entered into a reminder system for annual screening mammogram. Electronically signed by: Herman Mckay DO (12/18/2021 2:11 PM) [id number]
== END ==
LOC: MAMMO 12:49
PROVIDERS: ATTEND Nurse Practitioner
DX: N60.01 Solitary cyst of right breast (principal); N60.02 Solitary cyst of left breast; N64.89 Other specified disorders of breast
CPT/HCPCS: 76641; 77066; G0279; 77062